=== PATIENT | female | born 1960 | race Caucasian/White ===

== ENCOUNTER 2020-04-02 17:37 | Emergency (ER) | payer SELFPAY ==
[~2020-04-02] VITALS: Ht 162.6 cm; Wt 67.1 kg
[2020-04-02] MEDS ORDERED: MORPHINE SULFATE 4 MG/ML, 1ML ONE (18:09)
[2020-04-02] MEDS ORDERED: ONDANSETRON 2MG/ML, 2ML ONE (18:09)
[2020-04-02] MEDS ORDERED: SODIUM CHLORIDE FLUSH 10ML SYR IVF ONE (18:30)
[2020-04-02] MEDS ORDERED: ONDANSETRON 2MG/ML, 2ML IVPush ONE (18:30)
[2020-04-02] MEDS ORDERED: MORPHINE SULFATE 4 MG/ML, 1ML IVPush PRN (18:30)
--- NOTE | 2020-04-02 18:37 | NUR ---
PT CAME IN CO "I HAVENT HAD A BM IN 4 DAYS. I FEEL LIKE I HAVE TO GO BUT I CANT. JOSE CARLOS HAD A BLOCKAGE BEFORE WHICH REQUIRED SURGERY". PT ALSO STATING THAT SHE IS HAVING BACK PAIN.
[2020-04-02 18:53] LABS: BASOPHILS % (AUTO) 1 % (0-1); EOSINOPHILS % (AUTO) 1 % (1-7); LYMPHOCYTES % (AUTO) 21 % (22-44); MD NO; MEAN CORPUSCULAR HEMOGLOBIN 29.8 pg (27.0-34.8); MEAN CORPUSCULAR HGB CONC 33.6 g/dL (32.4-35.8); MEAN PLATELET VOLUME 7.8 fL (7.4-10.4); MONOCYTES % (AUTO) 14 % (2-9); NEUTROPHILS % (AUTO) 64 % (42-75); PLATELET COUNT 245 x10^3/uL (130-400); RED BLOOD COUNT 4.75 x10^6/uL (3.82-5.3); RED CELL DISTRIBUTION WIDTH 13.1 % (9.6-15.2)
[2020-04-02] MEDS ORDERED: PINK LADY ENEMA 490 ML BOTTLE PR ONE (19:00)
[2020-04-02 19:01] LABS: ALANINE AMINOTRANSFERASE 30 U/L (12-78); ALBUMIN 4.2 g/dL (3.4-5.0); ANION GAP 4 mmol/L (5-15); CALCIUM 9.3 mg/dL (8.5-10.1); CHLORIDE 105 mmol/L (98-107)
[2020-04-02 19:04] LABS: ALKALINE PHOSPHATASE 82 U/L (45-117); BILIRUBIN,TOTAL 0.5 mg/dL (0.2-1.0); CREATININE 0.76 mg/dL (0.55-1.02); TOTAL PROTEIN 7.8 g/dL (6.4-8.2)
[2020-04-02 20:45] VITALS: BP 139/82
== END 2020-04-02 20:47 | disposition home or self-care (01) ==
LOC: ED 20:41
DX: K59.00 Constipation, unspecified (principal); R10.84 Generalized abdominal pain; M54.5 Low back pain; R10.10 Upper abdominal pain, unspecified; Z90.49 Acquired absence of other specified parts of digestive tract; Z87.891 Personal history of nicotine dependence
CPT/HCPCS: 36415; 74022; 80053; 83690; 85025; 96374; 96375; 99284; J2270; J2405

== ENCOUNTER 2020-12-10 14:31 | Inpatient (IN) | payer BC, OTHER ==
[~2020-12-10] VITALS: Ht 162.6 cm; Wt 67.1 kg
[2020-12-10] MEDS ORDERED: AZITHROMYCIN 500 MG in SODIUM CHLORIDE 0.9% 250 ML IVPB ONE (15:00)
[2020-12-10] MEDS ORDERED: SODIUM CHLORIDE 0.9% 1,000ML IVBOLUS ONE (15:00)
[2020-12-10] MEDS ORDERED: CEFTRIAXONE 1,000 MG in DEXTROSE 5% 50 ML IVPB ONE (15:00)
[2020-12-10] MEDS ORDERED: DEXAMETHASONE 4 MG/ML, 1ML IV ONE (15:00)
[2020-12-10] MEDS ORDERED: DEXAMETHASONE 4 MG/ML, 1ML ONE (15:03)
[2020-12-10 15:15] LABS: BASOPHILS % (AUTO) 0 % (0-1); EOSINOPHILS % (AUTO) 0 % (1-7); LYMPHOCYTES % (AUTO) 7 % (22-44); MEAN CORPUSCULAR HEMOGLOBIN 29.8 pg (27.0-34.8); MEAN PLATELET VOLUME 8.3 fL (7.4-10.4); MONOCYTES % (AUTO) 10 % (2-9); NEUTROPHILS % (AUTO) 83 % (42-75); PLATELET COUNT 135 x10^3/uL (130-400); RED BLOOD COUNT 4.57 x10^6/uL (3.82-5.3); RED CELL DISTRIBUTION WIDTH 12.7 % (9.6-15.2)
[2020-12-10 15:22] LABS: ANION GAP 5 mmol/L (5-15); CHLORIDE 102 mmol/L (98-107); CREATININE 0.52 mg/dL (0.55-1.02)
--- NOTE | 2020-12-10 15:24 | NUR ---
PHARMACY SLIP SENT FOR LINDA
--- NOTE | 2020-12-10 18:16 | NUR ---
PT ASSISTED TO COMMODE. MEDICATED PER MAY. [place] UP. BELONGINGS AND CALL LIGHT WITHIN REACH.
--- NOTE | 2020-12-10 18:40 | NUR ---
HODA JEFFREY [phone] (SON). PER PT, PT'S SON CAN RECEIVE UPDATES.
--- NOTE | 2020-12-10 19:49 | NUR ---
Patient is resting comfortably in bed. Bed in lowest, rails engaged, call light on lap. Vital Signs within normal limits. WCTM. NADN. PT INCONTINENT. CLEASNING AND CHANGING PER PROTOCOL. WILL INITIIATE DIVINA
[2020-12-10] MEDS ORDERED: morphine SULFATE 10 MG/ML, 1ML IVPush PRN (20:30)
[2020-12-10] MEDS ORDERED: ACETAMINOPHEN 325 MG TABLET PO PRN (20:30)
[2020-12-10] MEDS ORDERED: BISACODYL 10 MG SUPP PR PRN (20:30)
[2020-12-10] MEDS ORDERED: ENOXAPARIN 40 MG/0.4 ML SQ SCH (20:30)
[2020-12-10] MEDS ORDERED: PHARMACY MAY ADJ FOR RENAL FX MC PRN (20:30)
[2020-12-10] MEDS ORDERED: KETOROLAC 30 MG/1 ML IV ONE (20:30)
[2020-12-10] MEDS ORDERED: KETOROLAC 30 MG/1 ML ONE (20:56)
[2020-12-10] MEDS ORDERED: ENOXAPARIN 60 MG/0.6 ML ONE (20:56)
[2020-12-10] MEDS ORDERED: REMDESIVIR 200 MG in SODIUM CHLORIDE 0.9% 100 ML IVPB ONE (21:00)
[2020-12-10] MEDS: MELATONIN 5 MG TABLET PO SCH (21:00)
--- NOTE | 2020-12-10 21:03 | NUR ---
DID NOT START ROCEPHIN. WAS GIVBEN AT 1500 TOIDAY
[2020-12-10 21:13] LABS: ALBUMIN 2.8 g/dL (3.4-5.0); BILIRUBIN, DIRECT 0.1 mg/dL (0.1-0.2)
[2020-12-10 21:15] LABS: BILIRUBIN,INDIRECT 0.2 mg/dL (0.0-2.0); BILIRUBIN,TOTAL 0.3 mg/dL (0.2-1.0); TOTAL PROTEIN 6.8 g/dL (6.4-8.2)
[2020-12-10] MEDS ORDERED: ASCORBIC ACID 500 MG TABLET ONE (21:17)
[2020-12-10] MEDS ORDERED: MELATONIN 5 MG TABLET ONE (21:17)
[2020-12-10] MEDS: ASCORBIC ACID 500 MG TABLET PO SCH (21:22)
--- NOTE | 2020-12-10 21:43 | NUR ---
PT REQUESTING FOOD. PT GIVEN TURKEY AND CHEESE SANDWICH AND SUNCHIPS. NADN. VSS ON 2L O2.
--- NOTE | 2020-12-10 21:58 | NUR ---
PT DOES NOT TAKE RX MEDS. NO MED REC
--- NOTE | 2020-12-10 23:04 | NUR ---
GAVE REPORT TO EDWIN NAJERA. TRANSFER OF CARE.
[2020-12-11] VITALS (7 sets, daily range): BP systolic 83–100; BP diastolic 50–64
--- NOTE | 2020-12-11 00:02 | NUR ---
PT CONDITION UNCGHANGED UPON TRANSFER. NADN
[2020-12-11] MEDS ORDERED: SODIUM CHLORIDE 0.9% 1,000ML IVBOLUS ONE (00:30)
[2020-12-11 04:56] LABS: HCT (SEDRATE) 37.2 % (34.6-47.8)
[2020-12-11 04:58] LABS: BASOPHILS % (AUTO) 0 % (0-1); EOSINOPHILS % (AUTO) 0 % (1-7); LYMPHOCYTES % (AUTO) 8 % (22-44); MEAN CORPUSCULAR HGB CONC 34.3 g/dL (32.4-35.8); MEAN PLATELET VOLUME 8.3 fL (7.4-10.4); MONOCYTES % (AUTO) 12 % (2-9); NEUTROPHILS % (AUTO) 81 % (42-75); PLATELET COUNT 144 x10^3/uL (130-400); RED BLOOD COUNT 4.22 x10^6/uL (3.82-5.3); RED CELL DISTRIBUTION WIDTH 12.9 % (9.6-15.2)
[2020-12-11 05:03] LABS: ALBUMIN 2.2 g/dL (3.4-5.0); ANION GAP 7 mmol/L (5-15); CALCIUM 7.3 mg/dL (8.5-10.1); CHLORIDE 107 mmol/L (98-107)
[2020-12-11 05:08] LABS: D-DIMER 0.43 ug/mlFEU (0.00-0.52); INTERNATIONAL NORMALIZED RATIO 1.01 (0.93-1.1); PROTHROMBIN TIME 10.8 Seconds (9.6-11.5)
[2020-12-11 05:11] LABS: ALANINE AMINOTRANSFERASE 256 U/L (12-78); ALKALINE PHOSPHATASE 91 U/L (45-117); BILIRUBIN,TOTAL 0.3 mg/dL (0.2-1.0); CREATINE KINASE, TOTAL 134 U/L (26-192); CREATININE 0.47 mg/dL (0.55-1.02); TOTAL PROTEIN 5.6 g/dL (6.4-8.2)
[2020-12-11] MEDS: ASCORBIC ACID 500 MG TABLET PO SCH ×2 (09:43→20:57)
[2020-12-11] MEDS: ZINC SULFATE 220 MG CAPSULE PO SCH (09:43)
[2020-12-11] MEDS: DEXAMETHASONE 4 MG/ML, 1ML IVPush SCH (09:43)
[2020-12-11] MEDS: ENOXAPARIN 60 MG/0.6 ML SQ SCH ×2 (09:44→20:57)
[2020-12-11] MEDS: CEFTRIAXONE 2,000 MG in DEXTROSE 5% 50 ML IVPB SCH (15:09)
[2020-12-11] MEDS ORDERED: CEFTRIAXONE 1,000 MG in DEXTROSE 5% 50 ML IVPB SCH (15:30)
[2020-12-11] MEDS: AZITHROMYCIN 500 MG in SODIUM CHLORIDE 0.9% 250 ML IV SCH (18:25)
[2020-12-11] MEDS: MELATONIN 5 MG TABLET PO SCH (20:58)
[2020-12-11] MEDS ORDERED: REMDESIVIR 100 MG in SODIUM CHLORIDE 0.9% 100 ML IVPB SCH (21:00)
[2020-12-12 00:55] VITALS: BP 86/52
[2020-12-12] MEDS: BENZONATATE 100 MG CAPSULE PO PRN ×3 (01:38→22:04)
[2020-12-12 09:03] LABS: HCT (SEDRATE) 36.7 % (34.6-47.8)
[2020-12-12 09:05] LABS: BASOPHILS % (AUTO) 0 % (0-1); EOSINOPHILS % (AUTO) 0 % (1-7); LYMPHOCYTES % (AUTO) 9 % (22-44); MEAN CORPUSCULAR HEMOGLOBIN 30.3 pg (27.0-34.8); MEAN CORPUSCULAR HGB CONC 34.8 g/dL (32.4-35.8); MEAN PLATELET VOLUME 8.3 fL (7.4-10.4); MONOCYTES % (AUTO) 11 % (2-9); NEUTROPHILS % (AUTO) 80 % (42-75); PLATELET COUNT 213 x10^3/uL (130-400); RED BLOOD COUNT 4.11 x10^6/uL (3.82-5.3); RED CELL DISTRIBUTION WIDTH 13.1 % (9.6-15.2)
[2020-12-12 09:10] LABS: ANION GAP 6 mmol/L (5-15); CALCIUM 8.1 mg/dL (8.5-10.1); CHLORIDE 109 mmol/L (98-107)
[2020-12-12 09:22] LABS: ALANINE AMINOTRANSFERASE 229 U/L (12-78); ALBUMIN 2.2 g/dL (3.4-5.0); ALKALINE PHOSPHATASE 88 U/L (45-117); BILIRUBIN,TOTAL 0.3 mg/dL (0.2-1.0); CREATINE KINASE, TOTAL 111 U/L (26-192); TOTAL PROTEIN 5.7 g/dL (6.4-8.2)
[2020-12-12] MEDS: ENOXAPARIN 60 MG/0.6 ML SQ SCH ×2 (10:27→21:35)
[2020-12-12] MEDS: DEXAMETHASONE 4 MG/ML, 1ML IVPush SCH (10:27)
[2020-12-12] MEDS: ASCORBIC ACID 500 MG TABLET PO SCH ×2 (10:27→21:34)
[2020-12-12] MEDS: ZINC SULFATE 220 MG CAPSULE PO SCH (10:27)
[2020-12-12 10:29] VITALS: BP 104/56
[2020-12-12] MEDS ORDERED: ONDANSETRON 2MG/ML, 2ML IVPush PRN (12:30)
[2020-12-12 12:41] VITALS: BP 94/55
[2020-12-12] MEDS: CEFTRIAXONE 2,000 MG in DEXTROSE 5% 50 ML IVPB SCH (14:55)
[2020-12-12 14:56] VITALS: BP 96/59
[2020-12-12] MEDS ORDERED: GUAIFENESIN/DM 200-20MG, 10ML UDC PO SCH (15:00)
[2020-12-12] MEDS: AZITHROMYCIN 500 MG in SODIUM CHLORIDE 0.9% 250 ML IV SCH (18:23)
[2020-12-12 19:28] VITALS: BP 95/60
[2020-12-12] MEDS: MELATONIN 5 MG TABLET PO SCH (21:00)
[2020-12-12] MEDS ORDERED: REMDESIVIR 100 MG in SODIUM CHLORIDE 0.9% 100 ML IVPB SCH (21:00)
[2020-12-12] MEDS: GUAIFENESIN/DM 100-10MG, 5ML UDC PO SCH (22:37)
[2020-12-13 00:53] VITALS: BP 100/62
[2020-12-13] MEDS ORDERED: GUAIFENESIN/DM 100-10MG, 5ML UDC PO SCH (03:00)
[2020-12-13] MEDS: GUAIFENESIN/DM 100-10MG, 5ML UDC PO SCH ×3 (05:13→17:51)
[2020-12-13] MEDS: ENOXAPARIN 60 MG/0.6 ML SQ SCH ×2 (07:19→21:25)
[2020-12-13] MEDS: ASCORBIC ACID 500 MG TABLET PO SCH ×2 (07:19→21:26)
[2020-12-13] MEDS: BENZONATATE 100 MG CAPSULE PO PRN ×2 (07:19→16:04)
[2020-12-13 07:20] LABS: BASOPHILS % (AUTO) 0 % (0-1); EOSINOPHILS % (AUTO) 0 % (1-7); LYMPHOCYTES % (AUTO) 8 % (22-44); MEAN CORPUSCULAR HEMOGLOBIN 29.8 pg (27.0-34.8); MEAN CORPUSCULAR HGB CONC 34.2 g/dL (32.4-35.8); MEAN PLATELET VOLUME 7.8 fL (7.4-10.4); MONOCYTES % (AUTO) 12 % (2-9); NEUTROPHILS % (AUTO) 80 % (42-75); PLATELET COUNT 253 x10^3/uL (130-400); RED BLOOD COUNT 4.08 x10^6/uL (3.82-5.3); RED CELL DISTRIBUTION WIDTH 13.1 % (9.6-15.2)
[2020-12-13] MEDS: DEXAMETHASONE 4 MG/ML, 1ML IVPush SCH (07:20)
[2020-12-13] MEDS: ZINC SULFATE 220 MG CAPSULE PO SCH (07:20)
[2020-12-13 07:27] LABS: HCT (SEDRATE) 35.6 % (34.6-47.8)
[2020-12-13 07:30] LABS: CHLORIDE 109 mmol/L (98-107)
[2020-12-13 07:31] VITALS: BP 94/56
[2020-12-13 07:51] LABS: ALANINE AMINOTRANSFERASE 216 U/L (12-78); ALBUMIN 2.2 g/dL (3.4-5.0); ALKALINE PHOSPHATASE 109 U/L (45-117); ANION GAP 7 mmol/L (5-15); BILIRUBIN,TOTAL 0.3 mg/dL (0.2-1.0); CALCIUM 7.8 mg/dL (8.5-10.1); CREATINE KINASE, TOTAL 61 U/L (26-192); CREATININE 0.48 mg/dL (0.55-1.02); TOTAL PROTEIN 5.8 g/dL (6.4-8.2)
[2020-12-13 08:32] LABS: D-DIMER 0.2 ug/mlFEU (0.00-0.52); INTERNATIONAL NORMALIZED RATIO 0.93 (0.93-1.1); PROTHROMBIN TIME 9.8 Seconds (9.6-11.5)
[2020-12-13 12:32] VITALS: BP 97/63
[2020-12-13] MEDS: CEFTRIAXONE 2,000 MG in DEXTROSE 5% 50 ML IVPB SCH (16:04)
[2020-12-13] MEDS: AZITHROMYCIN 500 MG in SODIUM CHLORIDE 0.9% 250 ML IV SCH (17:51)
[2020-12-13 19:33] VITALS: BP 107/64
[2020-12-13] MEDS: MELATONIN 5 MG TABLET PO SCH (21:26)
[2020-12-14 00:20] VITALS: BP 116/56
[2020-12-14] MEDS: GUAIFENESIN/DM 100-10MG, 5ML UDC PO SCH ×4 (04:13→18:00)
[2020-12-14 05:45] LABS: BASOPHILS % (AUTO) 0 % (0-1); EOSINOPHILS % (AUTO) 0 % (1-7); HCT (SEDRATE) 35.6 % (34.6-47.8); LYMPHOCYTES % (AUTO) 12 % (22-44); MEAN CORPUSCULAR HEMOGLOBIN 29.6 pg (27.0-34.8); MEAN CORPUSCULAR HGB CONC 34.1 g/dL (32.4-35.8); MEAN PLATELET VOLUME 8.2 fL (7.4-10.4); MONOCYTES % (AUTO) 18 % (2-9); NEUTROPHILS % (AUTO) 70 % (42-75); PLATELET COUNT 266 x10^3/uL (130-400)
[2020-12-14 05:52] LABS: ALBUMIN 2.1 g/dL (3.4-5.0); ANION GAP 4 mmol/L (5-15); CALCIUM 7.5 mg/dL (8.5-10.1); CHLORIDE 106 mmol/L (98-107)
[2020-12-14 06:00] LABS: ALANINE AMINOTRANSFERASE 406 U/L (12-78); ALKALINE PHOSPHATASE 138 U/L (45-117); BILIRUBIN,TOTAL 0.2 mg/dL (0.2-1.0); CREATINE KINASE, TOTAL 69 U/L (26-192); CREATININE 0.41 mg/dL (0.55-1.02); TOTAL PROTEIN 5.8 g/dL (6.4-8.2)
[2020-12-14 07:34] VITALS: BP 112/65
[2020-12-14] MEDS ORDERED: OMNIPAQUE 350 MG/ML, 100ML BOTTLE ONE (09:30)
[2020-12-14] MEDS: ZINC SULFATE 220 MG CAPSULE PO SCH (10:10)
[2020-12-14] MEDS: DEXAMETHASONE 4 MG/ML, 1ML IVPush SCH (10:10)
[2020-12-14] MEDS: ASCORBIC ACID 500 MG TABLET PO SCH ×2 (10:10→21:06)
[2020-12-14] MEDS: BENZONATATE 100 MG CAPSULE PO PRN ×2 (10:10→21:06)
[2020-12-14] MEDS ORDERED: POLYETHYLENE GLYCOL 17 GM PACKET PO PRN (10:30)
[2020-12-14 12:26] VITALS: BP 102/68
[2020-12-14] MEDS: CEFTRIAXONE 2,000 MG in DEXTROSE 5% 50 ML IVPB SCH (16:06)
[2020-12-14] MEDS: AZITHROMYCIN 500 MG in SODIUM CHLORIDE 0.9% 250 ML IV SCH (18:00)
[2020-12-14] MEDS: MELATONIN 5 MG TABLET PO SCH (21:00)
[2020-12-14 21:10] VITALS: BP 104/71
[2020-12-14] MEDS ORDERED: ENOXAPARIN 40 MG/0.4 ML SQ SCH (21:30)
[2020-12-15 00:32] VITALS: BP 106/69
[2020-12-15] MEDS: GUAIFENESIN/DM 100-10MG, 5ML UDC PO SCH ×3 (00:41→11:59)
[2020-12-15 07:37] LABS: BASOPHILS % (AUTO) 0 % (0-1); EOSINOPHILS % (AUTO) 0 % (1-7); LYMPHOCYTES % (AUTO) 12 % (22-44); MEAN CORPUSCULAR HEMOGLOBIN 29.4 pg (27.0-34.8); MEAN PLATELET VOLUME 7.7 fL (7.4-10.4); MONOCYTES % (AUTO) 19 % (2-9); NEUTROPHILS % (AUTO) 70 % (42-75); PLATELET COUNT 305 x10^3/uL (130-400); RED BLOOD COUNT 4.33 x10^6/uL (3.82-5.3); RED CELL DISTRIBUTION WIDTH 12.9 % (9.6-15.2)
[2020-12-15 07:54] LABS: C-REACTIVE PROTEIN, QUANT 0.82 mg/dL (0.02-0.49)
[2020-12-15 08:11] LABS: D-DIMER 0.38 ug/mlFEU (0.00-0.52); HCT (SEDRATE) 37.5 % (34.6-47.8); INTERNATIONAL NORMALIZED RATIO 0.94 (0.93-1.1); PROTHROMBIN TIME 10.1 Seconds (9.6-11.5)
[2020-12-15 08:18] VITALS: BP 113/55
[2020-12-15] MEDS: ASCORBIC ACID 500 MG TABLET PO SCH (08:22)
[2020-12-15] MEDS: ZINC SULFATE 220 MG CAPSULE PO SCH (08:22)
[2020-12-15] MEDS: DEXAMETHASONE 4 MG/ML, 1ML IVPush SCH (08:22)
[2020-12-15 11:13] LABS: ALBUMIN 2.6 g/dL (3.4-5.0); ANION GAP 8 mmol/L (5-15); CALCIUM 8.2 mg/dL (8.5-10.1); CHLORIDE 105 mmol/L (98-107)
[2020-12-15 11:17] LABS: ALANINE AMINOTRANSFERASE 477 U/L (12-78); ALKALINE PHOSPHATASE 142 U/L (45-117); BILIRUBIN,TOTAL 0.3 mg/dL (0.2-1.0); CREATININE 0.48 mg/dL (0.55-1.02); TOTAL PROTEIN 6.4 g/dL (6.4-8.2)
[2020-12-15 12:06] VITALS: BP 114/53
[2020-12-15] MEDS ORDERED: ASCO500T9 PO (13:15)
[2020-12-15] MEDS ORDERED: CHOL10003 PO (13:15)
[2020-12-15] MEDS ORDERED: BENZ-17 PO (13:15)
[2020-12-15] MEDS ORDERED: ZINC220C8 PO (13:15)
[2020-12-15] MEDS ORDERED: CEFD300C37 PO (13:16)
[2020-12-15] MEDS ORDERED: PRED20TA PO (13:16)
[2020-12-15] MEDS ORDERED: CEFTRIAXONE 2,000 MG in SODIUM CHLORIDE 0.9% 50 ML IVPB SCH (15:30)
== END 2020-12-15 17:00 | disposition home or self-care (01) | DRG 177 ==
LOC: ED 18:11 → EDIP 20:19 → 3N 23:55
PROVIDERS: ADMIT Emergency Medicine; ATTEND Hospitalist
PROC: XW033E5 Introduction of Remdesivir Anti-infective into Peripheral Vein, Percutaneous Approach, New Technology Group 5 (ICD-10-PCS; principal; 2020-12-10)
DX: U07.1 COVID-19 (principal); J96.01 Acute respiratory failure with hypoxia; J12.82 Pneumonia due to coronavirus disease 2019; F17.200 Nicotine dependence, unspecified, uncomplicated; R74.01 Elevation of levels of liver transaminase levels; Z90.49 Acquired absence of other specified parts of digestive tract; Z72.89 Other problems related to lifestyle
CPT/HCPCS: 36415; 71045; 71275; 74220; 76700; 80048; 80053; 80074; 80076; 82040; 82550; 82728; 85025; 85379; 85384; 85610; 85651; 85730; 86140; 93005; 96365; 96366; 96368; 96375; 99285; G0378; J0456; J0696; J1100; J1650; J1885; J2405; Q9967; J7030; J7050